=== PATIENT | male | born 1945 | race African-American/Black ===

== ENCOUNTER 2021-07-10 19:53 | Inpatient (IN) | payer OTHER ==
--- NOTE | ~2021-07-10 | EMS ---
[address] [address] EMS Patient Care Report Name: DON LUGO Room #: 170-3 [facility] IN M..#: [id number] Admission: 07/10/21 Attend Phys: Chema Roe MD Discharge: 07/11/21 Date of : 47 Report #: [id number] THIS REPORT FOR: //name// Report Transmitted: 07/12/2021 08:09 EMS Care Summary [place], [place]/[facility] Incident [id number] @ 07/10/2021 19:06 Incident Location [facility] MICAH DUNCAN G11 Patient DON LUGO Male, 76 Years 1945 Patient Address [address] [place], [place] [id number] Patient History Congestive Heart Failure (CHF),Chronic Obstructive Pulmonary Disease (COPD),Smoking,Pneumonia, Patient Allergies No known allergies, Patient Medications Atorvastatin, Albuterol, Prednisone, Clopidogrel, Spironolactone, Losartan, Chief Complaint Respiratory distress Disposition Transported No Lights/[place] Reason Breathing Problem Transported To [facility] Narrative M42 arrived on scene to find the patient sitting upright in his bed. Patient said he has had a history of CHF. Patient said he had been off his insulin for the past 2-3 days. Patient had swelling in his lower legs. Patient denied chest [address] [address] EMS Patient Care Report Name: DON LUGO Room #: 170-3 [facility] IN [facility]#: [id number] Admission: 07/10/21 Attend Phys: Chema Roe MD Discharge: 07/11/21 Date of : 47 Report #: [id number] pain, fever, or cough. Patient's lung sounds were clear and equal bilaterally. Patient was moved to the cot and secured with seat belts. En route to the hospital no changes in the patient condition occurred. M42 arrived on scene of the hospital and patient care was transferred to the RN. Initial Vitals @19:27P: 116,R: 24,BP: 136/84,Pain: 0/10,GCS: 15,CO: 1,SpO2: 97,Revised Trauma: 12, @19:30P: 81,R: 24,BP: 133/72,Pain: 0/10,GCS: 15,CO: 2,SpO2: 96,Revised Trauma: 12, Assessments @19:17MENTAL:No Abnormalities,SKIN:No Abnormalities,HEENT:Head/Face: No Abnormalities,Eyes: No Abnormalities,Neck/Airway: No Abnormalities,LUNG SOUNDS:General: No Abnormalities,Left Upper: No Abnormalities,Right Upper: No Abnormalities,Left Lower: No Abnormalities,Right Lower: No Abnormalities,ABDOMEN:General: No Abnormalities,Left Upper: No Abnormalities,Right Upper: No Abnormalities,Left Lower: No Abnormalities,Right Lower: No Abnormalities,PELVIS//GI:No Abnormalities,EXTREMITIES:Left Arm: No Abnormalities,Right Arm: No Abnormalities,Left Leg: No Abnormalities,Right Leg: No Abnormalities,PULSE:NEURO:No Abnormalities,@19:29MENTAL:No Abnormalities,SKIN:No Abnormalities,HEENT:Head/Face: No Abnormalities,Eyes: No Abnormalities,Neck/Airway: No Abnormalities,LUNG SOUNDS:General: No Abnormalities,Left Upper: No Abnormalities,Right Upper: No Abnormalities,Left Lower: No Abnormalities,Right Lower: No Abnormalities,ABDOMEN:General: No Abnormalities,Left Upper: No Abnormalities,Right Upper: No Abnormalities,Left Lower: No Abnormalities,Right Lower: No Abnormalities,PELVIS//GI:No Abnormalities,EXTREMITIES:Left Arm: No Abnormalities,Right Arm: No Abnormalities,Left Leg: No Abnormalities,Right Leg: No Abnormalities,PULSE:NEURO:No Abnormalities, Impression Shortness of breath Procedures @19:17 ALS Assessment Response: UnchangedSucceeded @19:19 IV Therapy - Saline Lock 10cc (18 ga) Site: Forearm-Left Response: UnchangedSucceeded @PTAOxygen FlowRate: 4 Device: Nasal Cannula (NC) Response: UnchangedSucceeded Timeline ART STUDIO TEACHER,Oxygen FlowRate: 4 Device: Nasal Cannula (NC) Response: UnchangedSucceeded, 19:04,Call Received 19:04,Dispatch Notified 19:06,Dispatched [address] [address] EMS Patient Care Report Name: DON LUGO Room #: 170-3 [facility] IN ..#: [id number] Admission: 07/10/21 Attend Phys: Chema Roe MD Discharge: 07/11/21 Date of : 47 Report #: [id number] 19:07,En Route 19:16,On Scene 19:17,At Patient 19:17,ALS Assessment,Response: UnchangedSucceeded, 19:19,IV Therapy - Saline Lock 10cc 18 ga Site: Forearm-Left,Response: UnchangedSucceeded, 19:27,BP: 136/84 M,PULSE: 116,RR: 24 R,SPO2: 97 Ox,ETCO2: ,BG: ,PAIN: 0,GCS: 15, 19:30,BP: 133/72 M,PULSE: 81,RR: 24 R,SPO2: 96 Ox,ETCO2: ,BG: ,PAIN: 0,GCS: 15, 19:31,Depart Scene 19:33,At Destination 19:57,Call Closed Disclaimer v1.1 Copyright 2020 [employer] This EMS Care Summary contains data elements from the applicable legal record (which may be displayed differently). It is designed to provide pertinent information for the following purposes: continuity of care, clinical quality, and state data reporting. The complete legal record is available to ED staff and administrators of the receiving hospital in [employer]'s Patient Tracker. All data is provided "as is."
[2021-07-10 19:56] VITALS: BP 124/92
[2021-07-10 20:46] LABS: ABSOLUTE NEUTROPHILS 8.7 thou/uL (1.4-8.2); BASOPHILS 0.2 % (0.0-2.0); EOSINOPHILS 0.1 % (0.0-3.0); HEMATOCRIT 37.6 % (42.0-52.0); HEMOGLOBIN 12.9 gm/dL (14.0-18.0); LYMPHOCYTES 5.6 % (24.0-44.0); MCH 34.2 pg (26.0-34.0); MCHC 34.2 g/dL (28.0-37.0); MONOCYTES 9.2 % (1.0-8.0); PLATELET COUNT 324 thou/uL (150-400); POLYS 84.9 % (36.0-66.0); RBC 3.76 mil/uL (4.50-6.00); RDW 14.3 % (10.5-14.5); WBC 10.3 thou/uL (4.0-11.0)
[2021-07-10 20:53] LABS: CALCIUM 8.5 mg/dL (8.5-10.1); CREATININE 0.8 mg/dL (0.7-1.3); POTASSIUM 4.1 mmol/L (3.5-5.1)
[2021-07-10 21:04] LABS: TOTAL BILIRUBIN 0.3 mg/dL (0.2-1.0); TOTAL PROTEIN 6.6 g/dL (6.4-8.2)
[2021-07-10 23:43] VITALS: BP 133/84
[2021-07-11] MEDS ORDERED: PREDNISONE 20 M20 M1 PO (02:58)
[2021-07-11] MEDS ORDERED: BUSPIRONE HCL7.5 MG PO (02:59)
[2021-07-11] MEDS ORDERED: LIPITOR40 MG PO (02:59)
[2021-07-11] MEDS ORDERED: PLAVIX 75 MG TA75 MG PO (02:59)
[2021-07-11] MEDS ORDERED: IPRAT-ALBUT 0.5-3 ML INH ×2 (03:00)
[2021-07-11] MEDS ORDERED: PULMICORT0.5 MG/21 INH (03:01)
[2021-07-11] MEDS ORDERED: ADVAIR 250-501 EACH INH (03:01)
[2021-07-11] MEDS ORDERED: PROAIR HFA8.5 GM INH (05:01)
[2021-07-11 05:35] LABS: CALCIUM 8.6 mg/dL (8.5-10.1); CREATININE 0.8 mg/dL (0.7-1.3); POTASSIUM 4.3 mmol/L (3.5-5.1)
--- NOTE | 2021-07-11 05:58 | NUR ---
MULTIPLE ATTEMPTS TO CALL REPORT, NO ANSWER. PT AGREED TO RETURN IGNITE BY MEDICAL TRANSPORT
--- NOTE | 2021-07-11 12:52 | EKG ---
[place] [address] [facility] [place] [address] ELECTROCARDIOGRAM REPORT Name: DON LUGO Room #: 170-3 [facility] IN M.R.#: [id number] Admission: 07/10/21 Attend Phys: Chema Roe MD Discharge: 07/11/21 Date of : 47 Report #: [id number] [facility] ED Test Date: 2021-07-11 Test Time: 00:41:00 Pat Name: DON LUGO Department: Room: 170 Gender: M Linoleum Installer: norbert : 1945 Requested By: Lazaro Joe Order Number: [id number] MD: Nick Mayers Measurements Intervals [place] Rate: 111 P: 83 WI: 126 QRS: 101 QRSD: 81 T: 61 QT: 330 QTc: 449 Interpretive Statements Sinus tachycardia with irregular rate Right atrial enlargement Right axis deviation Borderline low voltage, extremity leads No previous ECG available for comparison Electronically Signed On 07-11-2021 12:52:26 PILE TRIMMER by Nick Mayers [email or web address] <ELECTRONICALLY SIGNED> By: Nick Mayers MD, [facility] 07/11/21 1252 0041 0041 Nick Mayers MD, FACC /EPI
== END 2021-07-11 05:54 | disposition left against medical advice (07) | DRG 291 ==
LOC: ER 19:53 → EROBS 23:50
PROVIDERS: Emergency Medicine; Nurse Practitioner Family; ADMIT Hospitalist; ATTEND Hospitalist
DX: I11.0 Hypertensive heart disease with heart failure (principal); I50.43 Acute on chronic combined systolic (congestive) and diastolic (congestive) heart failure; Z53.29 Procedure and treatment not carried out because of patient's decision for other reasons; G47.33 Obstructive sleep apnea (adult) (pediatric); F17.210 Nicotine dependence, cigarettes, uncomplicated; Z20.822 Contact with and (suspected) exposure to COVID-19; E78.5 Hyperlipidemia, unspecified; E11.51 Type 2 diabetes mellitus with diabetic peripheral angiopathy without gangrene; F41.9 Anxiety disorder, unspecified; J43.9 Emphysema, unspecified; Z95.820 Peripheral vascular angioplasty status with implants and grafts; Z83.3 Family history of diabetes mellitus; Z82.49 Family history of ischemic heart disease and other diseases of the circulatory system; Z82.3 Family history of stroke; Z71.6 Tobacco abuse counseling